=== PATIENT | male | born 1955 | race Caucasian/White ===

== ENCOUNTER 2017-05-02 10:12 | Emergency (ER) | payer OTHER ==
[2017-05-02] MEDS ORDERED: Sodium Chloride 0.9% 10 ML Syringe FLUSH PRN (10:53)
--- NOTE | 2017-05-02 12:09 | CR ---
Chest: Portable view of the chest was obtained. Comparison: No prior study. Heart size and mediastinum are normal. Lungs are clear. Degenerative change is seen within the right shoulder. Old healed fracture containing plate and screws seen within the left clavicle. Impression: 1. Incidental findings. Nothing acute seen on portable chest x-ray. Diagnostic code #2
--- NOTE | 2017-05-02 12:42 | EDM.PDOC ---
ED HPI GENERAL MEDICAL PROBLEM - General Chief Complaint: Lower Extremity Injury/Pain Stated Complaint: FEET SWOLLEN Time Seen by Provider: 05/02/17 10:41 Source of Information: Reports: Patient, RN Notes Reviewed - History of Present Illness INITIAL COMMENTS - FREE TEXT/NARRATIVE: 61-year-old male comes in with swelling of both lower legs, increasing warmth and erythema of right lower leg. This started several weeks ago. Swelling has been getting worse. warmth and erythema of the right lower leg is come on over the past 1-2 weeks. Is not aware of any particular injury. He's had no chest pain or difficulty breathing. No fever or chills. He does Have a bad right hip and is scheduled for a preop in about 2 weeks with plan for subsequent right hip surgery presumably right hip replacement. Right Hip Pain Score (Numeric/FACES): 8 Bilateral Lower Leg Pain Score (Numeric/FACES): 3 - Related Data Allergies Allergy/AdvReac Type Severity Reaction Status Date / Time No Known Allergies Allergy Verified 05/02/17 10:31 Home Meds: Home Meds Cephalexin 500 mg PO Q8HR #30 capsule 05/02/17 [Rx] Furosemide [Lasix] 20 mg PO DAILY #30 tablet 05/02/17 [Rx] Past Medical History Respiratory History: Reports: Sleep Apnea Other Musculoskeletal History: fractured pelvis - Past Surgical History GI Surgical History: Reports: Hernia, Inguinal Musculoskeletal Surgical History: Reports: ORIF Social & Family History - Tobacco Use Smoking Status *Q: Current Every Day Smoker Years of Tobacco use: 45 Packs/Tins Daily: 1 - Caffeine Use Caffeine Use: Reports: Coffee, Soda - Alcohol Use Days Per Week of Alcohol Use: 7 Number of Drinks Per Day: 3 Total Drinks Per Week: 21 - Recreational Drug Use Recreational Drug Use: No Review of Systems - Review of Systems Review Of Systems: See Below Constitutional: Denies: Chills, Fever Mouth/Throat: Denies: No Symptoms Respiratory: Reports: Shortness of Breath (chronic exertional, not worse than usual), Cough (chronic, mostly nonproductive). Denies: Wheezing, Pleuritic Chest Pain Cardiovascular: Denies: Chest Pain, Lightheadedness, Syncope GI/Abdominal: Denies: Abdominal Pain, Nausea, Vomiting Musculoskeletal: Reports: Leg Pain (is been some discomfort of the right ankle and distal lower leg, mostly concerned about increasing swelling both legs and increasing warmth and erythema right distal leg and ankle), Joint Pain (right hip, increase pain with movement and walking) Skin: Reports: No Symptoms Neurological: Reports: No Symptoms, Difficulty Walking (secondary to right hip discomfort). Denies: Trouble Speaking, Weakness ED EXAM, GENERAL - Physical Exam Exam: See Below General Appearance: Alert Throat/Mouth: Normal Inspection Head: Atraumatic. No: Facial Swelling Neck: Supple, Full Range of Motion Respiratory/Chest: No Respiratory Distress, Lungs Clear, Normal Breath Sounds Cardiovascular: Regular Rate, Rhythm Extremities: Pedal Edema (mild edema of the left leg ankle foot, moderate right leg ankle foot), Leg Pain (very mild right calf tenderness), Increased Warmth ( distal right leg, ankle and foot), Redness (mild erythema distal right leg ankle and foot), Other (he does have weak dorsalis pedis pulses palpable in both feet, both feet are warm to the touch.) Neurological: Alert, Oriented, No Motor/Sensory Deficits Skin Exam: Warm, Dry EKG INTERPRETATION EKG Date: 05/02/17 Rhythm: NSR P-Wave: Present QRS: Normal ST-T: Normal Course - Vital Signs Text/Narrative:: chest x-ray did not show acute findings, white blood count, other labs were relatively normal. Awaiting ultrasound report at this time. Last Recorded V/S: Last Vital Signs Temp 97.8 F 05/02/17 10:25 Pulse 61 05/02/17 10:25 Resp 16 05/02/17 10:25 BP 140/79 05/02/17 10:25 Pulse Ox 99 05/02/17 10:25 - Orders/Labs/Meds Orders: Active Orders 24 hr Category Date Time Status EKG 12 Lead [EKG Documentation Completion] [RC] STAT Care 05/02/17 11:02 Active Peripheral IV Care [RC] . DIRECTED Care 05/02/17 10:55 Active Sodium Chloride 0.9% [Saline Flush] Med 05/02/17 10:53 Active 10 ml FLUSH ASDIRECTED PRN Peripheral IV Insertion Adult [OM.PC] Stat Oth 05/02/17 10:54 Ordered Medication Orders Sodium Chloride (Saline Flush) 10 ml FLUSH ASDIRECTED PRN PRN Reason: Keep Vein Open Last Admin: 05/02/17 11:28 Dose: 10 ml Labs: Laboratory Tests 05/02/17 05/02/17 Range/Units 11:15 11:15 WBC 6.17 (4.23-9.07) K/mm3 RBC 4.31 L (4.63-6.08) M/mm3 Hgb 13.7 (13.7-17.5) gm/L Hct 41.2 (40.1-51.0) % MCV 95.6 H (79.0-92.2) fl MCH 31.8 (25.7-32.2) pg MCHC 33.3 (32.2-35.5) g/dl RDW Std Deviation 43.8 (35.1-43.9) fL Plt Count 265 (163-337) K/mm3 MPV 9.4 (9.4-12.3) fl Neut % (Auto) 67.1 (34.0-67.9) % Lymph % (Auto) 19.8 L (21.8-53.1) % [place] % (Auto) 8.4 (5.3-12.2) % Eos % (Auto) 3.7 (0.8-7.0) Baso % (Auto) 0.8 (0.1-1.2) % Neut # (Auto) 4.14 (1.78-5.38) K/mm3 Lymph # (Auto) 1.22 L (1.32-3.57) K/mm3 [place] # (Auto) 0.52 (0.30-0.82) K/mm3 Eos # (Auto) 0.23 (0.04-0.54) K/mm3 Baso # (Auto) 0.05 (0.01-0.08) K/mm3 Sodium 138 (136-145) mEq/L Potassium 4.2 (3.5-5.1) mEq/L Chloride 100 (98-107) mEq/L Carbon Dioxide 29 (21-32) mEq/L Anion Gap 13.2 (5-15) BUN 9 (7-18) mg/dL Creatinine 0.8 (0.7-1.3) mg/dL Est Cr Clr Drug Dosing 93.81 mL/min Estimated GFR (MDRD) > 60 (>60) mL/min BUN/Creatinine Ratio 11.3 L (14-18) Glucose 91 (80-115) mg/dL Calcium 9.2 (8.5-10.1) mg/dL Total Bilirubin 0.4 (0.2-1.0) mg/dL AST 15 (15-37) U/L ALT 18 (16-63) U/L Alkaline Phosphatase 137 H (46-116) U/L NT-Pro-B Natriuret Pep 40 (0-125) pg/mL Total Protein 8.3 H (6.4-8.2) g/dl Albumin 3.9 (3.4-5.0) g/dl Globulin 4.4 gm/dL Albumin/Globulin Ratio 0.9 L (1-2) Meds: Medications Generic Name Dose Route Start Last Admin Trade Name Freq PRN Reason Stop Dose Admin Sodium Chloride 10 ml 05/02/17 10:53 05/02/17 11:28 Saline Flush FLUSH 10 ml ASDIRECTED PRN Administration Keep Vein Open - Re-Assessments/Exams Free Text/Narrative Re-Assessment/Exam: 05/02/17 13:21 no evidence for DVT, labs are good, he has cellulitis, probable some stasis dermatitis as well, discharge instr. as documented. Departure - Departure Time of Disposition: 13:22 Disposition: Home, Self-Care 01 Condition: Fair Clinical Impression: Peripheral edema Cellulitis Qualifiers: Site of cellulitis: extremity Site of cellulitis of extremity: lower extremity Laterality: right Qualified Code(s): L03.115 - Cellulitis of right lower limb - Discharge Information Prescriptions: Cephalexin 500 mg PO Q8HR #30 capsule Furosemide [Lasix] 20 mg PO DAILY #30 tablet Referrals: PCP,None [Primary Care Provider] - Forms: ED Department Discharge Additional Instructions: elevate feet and legs as much as possible as discussed, also work feet back and forth to work calf muscles several times daily to help pump fluid back towards your heart. Cephalexin antibiotic 500 mg 3 times daily. Lasix 20 daily ( water pill) to try help reduce fluid retention. Follow up with your regular medical provider in about 1 week for recheck. Call for appt. Return to ED if symptoms worsening in any way. - My Orders Last 24 Hours: My Active Orders 05/02/17 10:53 Sodium Chloride 0.9% [Saline Flush] 10 ml FLUSH ASDIRECTED PRN 05/02/17 10:54 Peripheral IV Insertion Adult [OM.PC] Stat 05/02/17 10:55 Peripheral IV Care [RC] . DIRECTED 05/02/17 11:02 EKG 12 Lead [EKG Documentation Completion] [RC] STAT - Assessment/Plan Last 24 Hours: My Active Orders 05/02/17 10:53 Sodium Chloride 0.9% [Saline Flush] 10 ml FLUSH ASDIRECTED PRN 05/02/17 10:54 Peripheral IV Insertion Adult [OM.PC] Stat 05/02/17 10:55 Peripheral IV Care [RC] . DIRECTED 05/02/17 11:02 EKG 12 Lead [EKG Documentation Completion] [RC] STAT
--- NOTE | 2017-05-02 13:13 | US ---
Right lower extremity deep venous ultrasound: Duplex and color flow imaging was obtained the right common femoral, proximal greater saphenous, superficial femoral, popliteal, posterior tibial and peroneal veins. Left common femoral vein was also evaluated. Findings: Peroneal vein not optimally seen. Other veins show normal phasic flow, augmentation and compression. No indirect evidence to suggest thrombosis within the right peroneal vein. Subcutaneous edema noted within the lower extremity. Possible joint effusion within the right hip is noted. Impression: 1. No evidence of deep venous thrombosis is seen with the right lower extremity or within the left common femoral vein. 2. Subcutaneous edema within the right lower extremity. 3. Fluid is seen next to the right femoral head possibly due to joint effusion. Diagnostic code #3
[2017-05-02 13:49] VITALS: BP 124/72
== END 2017-05-02 13:40 | disposition home or self-care (01) ==
LOC: JD.ED 10:12
DX: L03.115 Cellulitis of right lower limb (principal); R60.0 Localized edema; G47.30 Sleep apnea, unspecified; F17.210 Nicotine dependence, cigarettes, uncomplicated; Z98.890 Other specified postprocedural states; Z79.899 Other long term (current) drug therapy
CPT/HCPCS: 36415; 71010; 80053; 83880; 85025; 93005; 93971; 99285; J7050; 99284

== ENCOUNTER 2021-05-28 14:32 | Emergency (ER) | payer MEDICAID, MEDICARE ==
[2021-05-28 16:00] VITALS: BP 106/67; PULSE 64
--- NOTE | 2021-05-28 17:29 | EDM.PDOC ---
ED [facility] GENERAL MEDICAL PROBLEM - General Chief Complaint: Upper Extremity Injury/Pain Stated Complaint: R SHOULDER PAIN Time Seen by Provider: 05/28/21 16:59 Source of Information: Reports: Patient History Limitations: Reports: No Limitations - History of Present Illness INITIAL COMMENTS - FREE TEXT/NARRATIVE: 65-year-old male presents the emergency department with complaints of pain in his right shoulder that started today. He states that he generally notices of "grinding" of his right shoulder area when he raises her lower his arm and this is normal for him however he states that today he has had increased pain and inability to raise his arm up however by the time he arrived in the emergency department he states that the pain has resolved. He denies any recent injury to the right shoulder. He does appear to have some issues with short-term memory as well. He is unsure of who his primary care provider is as he states he sometimes goes to [facility] and sometimes goes to [place]. He then also tells me that he takes blood thinners and he cannot remember who prescribes those for him. He tells me its due to him having an irregular heart beat. Patient states that on occasion he takes Tylenol or Aleve for the right shoulder discomfort. Right Shoulder Pain Score (Numeric/FACES): 3 - Related Data Allergies Allergy/AdvReac Type Severity Reaction Status Date / Time No Known Allergies Allergy Verified 05/28/21 16:00 Home Meds: Home Meds Furosemide [Lasix] 20 mg PO DAILY #30 tablet 05/02/17 [Rx] cephALEXin [Cephalexin] 500 mg PO Q8HR #30 capsule 05/02/17 [Rx] Past Medical History Respiratory History: Reports: Sleep Apnea Other Musculoskeletal History: fractured pelvis - Past Surgical History GI Surgical History: Reports: Hernia, Inguinal Musculoskeletal Surgical History: Reports: ORIF Social & Family History - Tobacco Use Tobacco Use Status *Q: Unknown Ever Used Tobacco - Caffeine Use Caffeine Use: Reports: Coffee, Soda Review of Systems - Review of Systems Review Of Systems: Comprehensive ROS is negative, except as noted in HPI. ED EXAM, GENERAL - Physical Exam Exam: See Below Exam Limited By: No Limitations General Appearance: Alert, WD/WN, No Apparent Distress Ears: Normal External Exam, Hearing Grossly Normal Nose: Normal Inspection Throat/Mouth: Normal Inspection, Normal Lips, Normal Voice, No Airway Compromise Head: Atraumatic Neck: Normal Inspection, Supple Respiratory/Chest: No Respiratory Distress, No Accessory Muscle Use Cardiovascular: Normal Peripheral Pulses Peripheral Pulses: 2+: Radial (L), Radial (R) GI/Abdominal: No Distention (Male) Exam: Deferred Rectal (Males) Exam: Deferred Back Exam: Normal Inspection Extremities: Normal Inspection, Normal Range of Motion, Non-Tender, Normal Capillary Refill Neurological: Alert, Oriented, Normal Cognition, Other (MemoryPatient does appear to have loss) Psychiatric: Normal Affect, Normal Mood Skin Exam: Warm, Dry, Intact, Normal Color, No Rash Course - Vital Signs Text/Narrative:: As stated above, patient presents with right shoulder discomfort that started today however this resolved. Upon exam, patient does have full range of motion noted bilaterally to his upper extremities. There is a grinding sensation noted to the right shoulder when patient does elevate his hand above his head. Patient does have decrease in strength to his right upper extremity when pushing medially however he does have equal strength noted to his upper extremities when pushing laterally. X-ray of the right shoulder was completed and reviewed by myself and Dr. Ayala. No acute fracture process is appreciated however patient likely does have arthritis to the right shoulder due to there being the appearance of [id number]. Patient will be discharged home with recommendations that he follow-up with Dr. Lauren this week. Patient is agreeable to this plan. Last Recorded V/S: Last Vital Signs Temp 97.0 F 05/28/21 15:55 Pulse 64 05/28/21 15:55 Resp 18 05/28/21 15:55 BP 106/67 05/28/21 15:55 Pulse Ox 97 05/28/21 15:55 - Orders/Labs/Meds Orders: Active Orders 24 hr Category Date Time Status Shoulder Comp Rt [CR] Stat Exams 05/28/21 16:11 Taken Departure - Departure Time of Disposition: 17:30 Disposition: Home, Self-Care 01 Condition: Good Clinical Impression: Right shoulder pain Qualifiers: Chronicity: acute Qualified Code(s): M25.511 - Pain in right shoulder - Discharge Information Instructions: Shoulder Pain, [id number], Pain Medicine Instructions, [id number] Referrals: Funmi Patel NP [Primary Care Provider] - Additional Instructions: You were seen in the emergency department today with complaints of pain to your right shoulder. X-ray was completed which did not show any broken bones. You do however have arthritis. Recommend that you follow-up with Dr. Lauren at [facility]. You can call to schedule an appointment at [phone]. Recommend you continue taking Tylenol 650 mg every 4 hours as needed for the discomfort. Do not recommend you take Aleve or ibuprofen due to the fact that you are already taking blood thinners. Sepsis Event Note (ED) - Evaluation Sepsis Screening Result: No Definite Risk - Focused Exam Vital Signs: Vital Signs Temp Pulse Resp BP Pulse Ox 05/28/21 15:55 97.0 F 64 18 106/67 97 - My Orders Last 24 Hours: My Active Orders 05/28/21 16:11 Shoulder Comp Rt [CR] Stat - Assessment/Plan Last 24 Hours: My Active Orders 05/28/21 16:11 Shoulder Comp Rt [CR] Stat
--- NOTE | 2021-05-29 07:47 | CR ---
Right shoulder: 3 views of the right shoulder were obtained. Comparison: No prior right shoulder study is available. Narrowing of the distance between the humeral head and acromial process is seen likely representing chronic rotator cuff tear. Inferior spurring is also noted within the acromioclavicular joint. Bony structures are osteopenic. No acute fracture or other abnormality is appreciated. Impression: 1. Findings are suspicious for chronic rotator cuff tear. 2. Osteopenia. Mild inferior spurring within the acromioclavicular joint. Diagnostic code #3
== END 2021-05-28 17:40 | disposition home or self-care (01) ==
LOC: JD.ED 14:32
DX: M25.511 Pain in right shoulder (principal)
CPT/HCPCS: 73030-26-RT; 73030-RT; 99283

== ENCOUNTER 2022-12-09 21:39 | Emergency (ER) | payer MEDICARE ==
[2022-12-09] MEDS ORDERED: Aspirin 81 MG Tab.Chew PO ONE (22:17)
[2022-12-09 22:31] LABS: HEMATOCRIT 34.8 % (40.1-51.0); HEMOGLOBIN 11.5 gm/dl (13.7-17.5); MEAN CORPUSCULAR HEMOGLOBIN 33.7 pg (25.7-32.2); MEAN CORPUSCULAR VOLUME 102.1 fl (79.0-92.2); MEAN PLATELET VOLUME 9.4 fl (9.4-12.3); PLATELET COUNT,PLT 175 K/mm3 (163-337); RED BLOOD CELL COUNT 3.41 M/mm3 (4.63-6.08); WHITE BLOOD CELL COUNT,WBC 6.06 K/mm3 (4.23-9.07)
[2022-12-09 22:54] LABS: BAND PERCENT MAN 0 % (0-10); BASOPHILS PERCENT MAN 0 (0.2-1.2); EOSINOPHILS PERCENT MAN 0 % (0.8-7.0); LYMPHOCYTES % ATYPICAL MANUAL 0 %; LYMPHOCYTES PERCENT MAN 33 % (20-40); MONOCYTES PERCENT MAN 2 % (2-10)
[2022-12-09 22:55] LABS: ANISOCYTOSIS 2+ MODERATE; PLATELET COUNT ESTIMATE ADEQUATE
[2022-12-09 22:56] LABS: ALBUMIN 3.4 g/dl (3.4-5.0); ANION GAP 13.6 (5-15); BILIRUBIN TOTAL 0.1 mg/dL (0.2-1.0); BUN/CREATININE RATIO 14.4 (14-18); CALCIUM 7.9 mg/dL (8.5-10.1); CREATININE 0.9 mg/dL (0.7-1.3); EST CRCL DRUG DOSING (CG) 77.06 mL/min; MAGNESIUM 1.7 mg/dL (1.8-2.4); POTASSIUM,K 3.6 mEq/L (3.5-5.1); PROTEIN TOTAL,TP 6.9 g/dl (6.4-8.2)
[2022-12-10 06:31] VITALS: BP 129/61; PULSE 69
== END 2022-12-10 06:57 | disposition home or self-care (01) ==
LOC: JD.ED 21:39
DX: R10.12 Left upper quadrant pain (principal)
CPT/HCPCS: 36415; 71045; 71045-26; 80053; 83605; 83735; 84484; 85007; 85027; 85379; 93005; 93010; 99284

== ENCOUNTER 2023-04-03 12:20 | Emergency (ER) | payer MEDICARE ==
[2023-04-03] MEDS ORDERED: Sodium Chloride 0.9% 10 ML Syringe FLUSH PRN ×2 (12:47→12:54)
[2023-04-03] MEDS ORDERED: Iopamidol 755 Mg/ML 100 ML Bottle IVPUSH ONE (12:54)
[2023-04-03 13:23] LABS: BASOPHILS ABSOLUTE AUTO 0.1 K/mm3 (0.0-0.2); BASOPHILS PERCENT AUTO 1.5 % (0.0-1.0); EOSINOPHILS ABSOLUTE AUTO 0.2 K/mm3 (0.0-0.4); EOSINOPHILS PERCENT AUTO 3.1 % (0.0-6.0); HEMATOCRIT 34.2 % (42.0-52.0); HEMOGLOBIN 11.4 gm/dl (14.0-18.0); IMMATURE GRAN ABSOLUTE AUTO 0.02 K/mm3 (0.00-0.05); IMMATURE GRAN PERCENT AUTO 0.4 % (0.0-0.4); LYMPHOCYTES ABSOLUTE AUTO 1.8 K/mm3 (1.0-4.8); LYMPHOCYTES PERCENT AUTO 32.6 % (24.0-44.0); MEAN CORPUSCULAR HGB CONC 33.3 g/dl (32.0-36.0); MEAN CORPUSCULAR VOLUME 102.1 fl (83.0-99.0); MEAN PLATELET VOLUME 9.1 fl (9.4-12.4); MONOCYTES ABSOLUTE AUTO 0.4 K/mm3 (0.0-0.8); MONOCYTES PERCENT AUTO 6.8 % (0.0-8.0); NEUTROPHILS PERCENT AUTO 55.6 % (41.0-71.0); PLATELET COUNT,PLT 218 K/mm3 (150-400); RED BLOOD CELL COUNT 3.35 M/mm3 (4.52-5.90); WHITE BLOOD CELL COUNT,WBC 5.43 K/mm3 (3.9-11.3)
[2023-04-03 13:43] LABS: ALANINE AMINOTRANSFERASE,ALT 88 U/L (16-63); ALBUMIN 3.2 g/dl (3.4-5.0); ALKALINE PHOSPHATASE 87 U/L (46-116); ANION GAP 12.8 (5-15); ASPARTATE AMNIOTRANSFERASE,AST 49 U/L (15-37); BILIRUBIN TOTAL 0.3 mg/dL (0.2-1.0); BLOOD UREA NITROGEN,BUN 10 mg/dL (7-18); BUN/CREATININE RATIO 11.1 (14-18); C-REACTIVE PROTEIN <0.2 mg/dL (<1.0); CALCIUM 7.9 mg/dL (8.5-10.1); CARBON DIOXIDE,CO2 27 mEq/L (21-32); CHLORIDE,CL 104 mEq/L (98-107); CREATININE 0.9 mg/dL (0.7-1.3); EST CRCL DRUG DOSING (CG) 77.06 mL/min; ESTIMATED GFR 94 mL/min (>60); GLUCOSE RANDOM 92 mg/dL (70-99); MAGNESIUM 1.7 mg/dL (1.8-2.4); POTASSIUM,K 3.8 mEq/L (3.5-5.1); PROTEIN TOTAL,TP 6.4 g/dl (6.4-8.2); SODIUM,NA 140 mEq/L (136-145)
[2023-04-03 15:17] VITALS: BP 115/72; PULSE 52
== END 2023-04-03 15:05 | disposition home or self-care (01) ==
LOC: JD.ED 12:20
DX: M54.2 Cervicalgia (principal); R51.9 Headache, unspecified; I10 Essential (primary) hypertension; I48.91 Unspecified atrial fibrillation; F17.210 Nicotine dependence, cigarettes, uncomplicated; Z79.01 Long term (current) use of anticoagulants; Z79.899 Other long term (current) drug therapy
CPT/HCPCS: 36415; 70450; 70496; 70498; 80053; 83735; 85025; 85652; 86140; 99284; J3490; Q9967

== ENCOUNTER 2023-05-09 13:53 | Emergency (ER) | payer MEDICARE ==
[2023-05-09] MEDS ORDERED: Sodium Chloride 0.9% 10 ML Syringe FLUSH PRN (14:06)
[2023-05-09] MEDS ORDERED: Aspirin 81 MG Tab.Chew PO ONE (14:06)
[2023-05-09 14:22] LABS: BASOPHILS ABSOLUTE AUTO 0.1 K/mm3 (0.0-0.2); BASOPHILS PERCENT AUTO 0.5 % (0.0-1.0); EOSINOPHILS ABSOLUTE AUTO 0.1 K/mm3 (0.0-0.4); EOSINOPHILS PERCENT AUTO 0.9 % (0.0-6.0); HEMATOCRIT 38.3 % (42.0-52.0); HEMOGLOBIN 13.8 gm/dl (14.0-18.0); IMMATURE GRAN ABSOLUTE AUTO 0.12 K/mm3 (0.00-0.05); IMMATURE GRAN PERCENT AUTO 1.1 % (0.0-0.4); LYMPHOCYTES PERCENT AUTO 18.5 % (24.0-44.0); MEAN CORPUSCULAR HEMOGLOBIN 31.9 pg (28.0-32.0); MEAN CORPUSCULAR VOLUME 88.7 fl (83.0-99.0); MEAN PLATELET VOLUME 8.5 fl (9.4-12.4); MONOCYTES ABSOLUTE AUTO 0.7 K/mm3 (0.0-0.8); MONOCYTES PERCENT AUTO 6.1 % (0.0-8.0); NEUTROPHILS ABSOLUTE AUTO 7.8 K/mm3 (1.8-7.7); NEUTROPHILS PERCENT AUTO 72.9 % (41.0-71.0); PLATELET COUNT,PLT 294 K/mm3 (150-400); RED BLOOD CELL COUNT 4.32 M/mm3 (4.52-5.90); WHITE BLOOD CELL COUNT,WBC 10.72 K/mm3 (3.9-11.3)
[2023-05-09] MEDS ORDERED: Sodium Chloride 0.9% 1,000 ML IV SCH (14:30)
[2023-05-09 14:38] LABS: D-DIMER QUANTITATIVE 0.31 mg/L (0.19-0.50); INR 0.96; PROTHROMBIN TIME 10.3 SECONDS (9.7-12.0)
[2023-05-09 14:59] LABS: ALBUMIN 3.6 g/dl (3.4-5.0); ANION GAP 13.2 (5-15); BILIRUBIN TOTAL 0.6 mg/dL (0.2-1.0); BUN/CREATININE RATIO 17.3 (14-18); CALCIUM 8.3 mg/dL (8.5-10.1); CREATININE 1.1 mg/dL (0.7-1.3); EST CRCL DRUG DOSING (CG) 63.05 mL/min; MAGNESIUM 1.9 mg/dL (1.8-2.4); POTASSIUM,K 3.2 mEq/L (3.5-5.1); PROTEIN TOTAL,TP 7.2 g/dl (6.4-8.2)
[2023-05-09] MEDS ORDERED: Potassium Chloride 20 MEQ Tab.ER PO ONE (15:19)
[2023-05-09 18:28] VITALS: BP 130/76; PULSE 60
== END 2023-05-09 18:24 | disposition home or self-care (01) ==
LOC: JD.ED 13:53
DX: R07.89 Other chest pain (principal); I10 Essential (primary) hypertension; I48.91 Unspecified atrial fibrillation; F17.210 Nicotine dependence, cigarettes, uncomplicated; Z79.899 Other long term (current) drug therapy
CPT/HCPCS: 36415; 71045; 80053; 83735; 83880; 84484; 85025; 85379; 85610; 93005; 96360; 96361; 99285; A9270; J3490; J7030; 93010; 99284